=== PATIENT | female | born 1980 | race Caucasian/White ===

== ENCOUNTER 2022-08-10 17:06 | Emergency (ER) | payer SELFPAY ==
[~2022-08-10] VITALS: Ht 154.9 cm; Wt 93.9 kg
[2022-08-10 17:17] VITALS: BP 126/77
--- NOTE | 2022-08-10 18:22 | NUR ---
PT AMBULATED TO BED 10
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
--- NOTE | 2022-08-10 18:31 | NUR ---
Dr. Clark is evaluating pt at bedside
--- NOTE | 2022-08-10 19:12 | NUR ---
Report and transfer of care given to Clifford RN.
--- NOTE | 2022-08-10 19:15 | NUR ---
ASSUMED CARE AT THIS TIME. PT COMPLAINING OF 7/10 LEFT SHOULDER PAIN. WAITING TO BE SEEN BY MD. NO OTHER COMPLAINTS AT THIS TIME.
[2022-08-10] MEDS ORDERED: NAPR-54 PO (19:32)
[2022-08-10 19:39] VITALS: BP 124/68
--- NOTE | 2022-08-10 19:39 | NUR ---
Patient discharged with v/s stable. Written and verbal after care instructions given and explained by Dr. Clark. Patient alert, oriented and verbalized understanding of instructions. Ambulatory with steady gait. All questions addressed prior to discharge. ID band removed. Patient advised to follow up with PMD. Rx of Naprosyn given. Patient educated on indication of medication including possible reaction and side effects. Opportunity to ask questions provided and answered.
== END 2022-08-10 19:39 | disposition home or self-care (01) ==
LOC: MED 17:06
DX: S43.402A Unspecified sprain of left shoulder joint, initial encounter (principal); Z79.1 Long term (current) use of non-steroidal anti-inflammatories (NSAID); V89.2XXA Person injured in unspecified motor-vehicle accident, traffic, initial encounter; Y93.89 Activity, other specified; Y92.410 Unspecified street and highway as the place of occurrence of the external cause; Y99.8 Other external cause status
CPT/HCPCS: 73030; 99283

== ENCOUNTER 2023-08-26 14:34 | Emergency (ER) | payer MEDICAID ==
[~2023-08-26] VITALS: Ht 165.1 cm; Wt 94.8 kg
[~2023-08-26 14:34] MED LIST: NAPR-54 PO
[2023-08-26 14:54] VITALS: BP 146/78; PULSE 76; RESP 18; TEMP 98.3; O2SAT 99
[2023-08-26] MEDS ORDERED: DIBU30OI RC (15:31)
[2023-08-26] MEDS ORDERED: MIRABULK PO (15:31)
== END 2023-08-26 15:40 | disposition home or self-care (01) ==
LOC: MED 14:34
DX: K64.4 Residual hemorrhoidal skin tags (principal); Z79.899 Other long term (current) drug therapy
CPT/HCPCS: 99282